=== PATIENT | female | born 1980 | race Caucasian/White ===

== ENCOUNTER 2020-08-07 12:52 | Emergency (ER) | payer BC ==
[~2020-08-07 12:52] MED LIST: BENADRYL 25MG C25 MG PO; LODINE CAP 300300 MG PO; ZOFRAN ODT 4 MG4 MG PO
[2020-08-07 15:07] LABS: HEMOGLOBIN 14.1 gm/dl (12.3-15.3); RED BLOOD COUNT 4.85 M/UL (4.00-5.10); WHITE BLOOD COUNT 8.1 K/UL (4.5-11.0)
[2020-08-07 15:30] LABS: BUN/CREATININE RATIO 14 (0-10)
== END 2020-08-07 17:15 | disposition home or self-care (01) ==
LOC: ER1 12:52
PROVIDERS: Physician Assistant
DX: I47.9 Paroxysmal tachycardia, unspecified (principal); Z88.2 Allergy status to sulfonamides
CPT/HCPCS: 71045; 80053; 82550; 82553; 83874; 84439; 84443; 84484; 84703; 85025; 85379; 93005; 93242; 99285; J7030

== ENCOUNTER 2021-11-01 13:27 | Emergency (ER) | payer BC | END 2021-11-01 16:57 | disposition home or self-care (01) | LOC: ER1 13:27 | DX: I10 Essential (primary) hypertension (principal); R51.9 Headache, unspecified; F17.200 Nicotine dependence, unspecified, uncomplicated; Z88.2 Allergy status to sulfonamides | CPT/HCPCS: 70450; 96372; 96374; 96375; 99284; J1200; J1885; J2765; J3030 ==

== ENCOUNTER 2021-11-15 15:09 | Emergency (ER) | payer BC ==
[2021-11-15 16:31] LABS: HEMOGLOBIN 13.3 gm/dl (12.3-15.3); RED BLOOD COUNT 4.67 M/UL (4.00-5.10); WHITE BLOOD COUNT 10.8 K/UL (4.5-11.0)
[2021-11-15 16:56] LABS: BUN/CREATININE RATIO 18 (0-10)
[2021-11-15] MEDS ORDERED: DOXYCYCLINE HY100 MG PO (19:07)
== END 2021-11-15 19:30 | disposition home or self-care (01) ==
LOC: ER1 15:09
PROVIDERS: Emergency Medicine
DX: R19.04 Left lower quadrant abdominal swelling, mass and lump (principal); R59.0 Localized enlarged lymph nodes
CPT/HCPCS: 80053; 81001; 84703; 85025; 93971; 99283; Q9967

== ENCOUNTER 2021-11-27 11:17 | Inpatient (IN) | payer BC ==
[~2021-11-27] VITALS: Ht 170.2 cm; Wt 59.0 kg
[~2021-11-27 11:17] MED LIST changes: +DOXYCYCLINE HY100 MG PO
[2021-11-27] MEDS ORDERED: AZITHROMYCIN500 MG PO (12:47)
[2021-11-27] MEDS ORDERED: HYDROXYZINE HCL25 MG PO (12:48)
[2021-11-27] MEDS ORDERED: BUPRENORPHIN-N1 EACH SL (12:48)
[2021-11-27 13:05] LABS: RED BLOOD COUNT 4.27 M/UL (4.00-5.10); WHITE BLOOD COUNT 11.7 K/UL (4.5-11.0)
[2021-11-27 14:26] LABS: BUN/CREATININE RATIO 22 (0-10)
[2021-11-28 06:13] LABS: HEMOGLOBIN 10.6 gm/dl (12.3-15.3); RED BLOOD COUNT 3.89 M/UL (4.00-5.10); WHITE BLOOD COUNT 9.7 K/UL (4.5-11.0)
[2021-11-28 06:26] LABS: BUN/CREATININE RATIO 24 (0-10)
[2021-11-29 06:02] LABS: HEMOGLOBIN 11.8 gm/dl (12.3-15.3); WHITE BLOOD COUNT 7.5 K/UL (4.5-11.0)
[2021-11-29 06:25] LABS: RED BLOOD COUNT 4.3 M/UL (4.00-5.10)
[2021-11-29 06:54] LABS: BUN/CREATININE RATIO 18 (0-10)
[2021-11-29] MEDS ORDERED: CLEOCIN HCL300 MG PO (15:19)
== END 2021-11-29 17:01 | disposition home or self-care (01) | DRG 872 ==
LOC: ER1 11:17 → CDU 15:04 → M/S 15:04
PROVIDERS: Physician Assistant; Physician Assistant Medical; ADMIT Internal Medicine
PROC: 3E03329 Introduction of Other Anti-infective into Peripheral Vein, Percutaneous Approach (ICD-10-PCS; principal; 2021-11-27)
PROC: 0J9C0ZZ Drainage of Pelvic Region Subcutaneous Tissue and Fascia, Open Approach (ICD-10-PCS; 2021-11-28)
DX: A41.9 Sepsis, unspecified organism (principal); L03.314 Cellulitis of groin; L02.214 Cutaneous abscess of groin; N39.0 Urinary tract infection, site not specified; B37.3 Candidiasis of vulva and vagina; Z88.2 Allergy status to sulfonamides
CPT/HCPCS: 36415; 72193; 80048; 80053; 80202; 81001; 83540; 83550; 83605; 83735; 84703; 85025; 85027; 85652; 86140; 87040; 87070; 87086; 87205; 96374; 96375; 99284; J1100; J1170; J1885; J2001; J2250; J2270; J2405; J2543; J2704; J3010; J3370; J7030; J7070; Q9967